=== PATIENT | male | born 1985 | race Two or more races ===

== ENCOUNTER → 2022-12-16 | Outpatient (CLI) | payer OTHER ==
[2022-12-16 11:29] LABS: Basophils # (auto) 0.1 10 ^3/uL (0-0.2); Basophils % (auto) 0.9 % (0.0-2.0); Eosinophils # (auto) 0.3 10 ^3/uL (0-0.8); Eosinophils % (auto) 4.5 % (0.0-7.0); Hematocrit 50.5 % (41.0-53.0); Hemoglobin 16.6 g/dL (13.5-17.5); Lymphocytes % (auto) 27.6 % (10.0-50.0); Mean Corpuscular Hemoglobin 28.7 pg (28.0-32.0); Mean Corpuscular Volume 86.9 fL (80.0-100.0); Monocytes # (auto) 0.6 10 ^3/uL (0-1.3); Monocytes % (auto) 7.6 % (0.0-12.0); Neutrophils # (auto) 4.4 10 ^3/uL (1.6-8.6); Neutrophils % (auto) 59.4 % (37.0-80.0); Nucleated Red Blood Cells % 0.1 %; Red Blood Cells 5.81 10^6/uL (4.5-5.90); Red Cell Distribution Width 13.8 % (11.8-14.3); White Blood Cell 7.3 10^3/uL (4.4-10.8)
[2022-12-16 11:56] LABS: Urine Bacteria NONE SEEN /hpf (None Seen); Urine Blood Negative /uL (Negative); Urine Mucus FEW (None Seen); Urine Specific Gravity 1.026 (1.001-1.035); Urine WBC 2 /hpf (0 - 3)
[2022-12-16 12:07] LABS: Potassium 3.9 mmol/L (3.5-5.1)
[2022-12-16 12:14] LABS: Albumin 4.2 g/dL (3.4-5.0); BUN/Creatinine Ratio 16.8; Bilirubin, Total 0.7 mg/dL (0.2-1.0); Calcium 9.4 mg/dL (8.5-10.1); Total Protein 8.1 g/dL (6.4-8.2)
== END | disposition home or self-care (01) ==
LOC: LAB 11:14
PROVIDERS: ATTEND Student in an Organized Health Care Education/Training Program
DX: R73.9 Hyperglycemia, unspecified (principal); E55.9 Vitamin D deficiency, unspecified; R03.0 Elevated blood-pressure reading, without diagnosis of hypertension
CPT/HCPCS: 36415; 80053; 80061; 81001; 82306; 83036; 84443; 85025

== ENCOUNTER 2023-10-02 17:23 | Inpatient (IN) | payer OTHER ==
[~2023-10-02] VITALS: Ht 172.7 cm; Wt 130.0 kg
[2023-10-02 18:00] VITALS: BP 148/91; PULSE 85; RESP 18; TEMP 97.6; O2SAT 95
[2023-10-02] MEDS ORDERED: CLINDAMYCIN 600MG IV 50 ML IV ONE (18:15)
[2023-10-02] MEDS ORDERED: ACETAMINOPHEN 325 MG TAB PO PRN (18:15)
[2023-10-02] MEDS ORDERED: HYDROcodone-ACET 5/325MG TAB PO PRN (18:15)
[2023-10-02] MEDS ORDERED: VANCOMYCIN PER PHARMACY 0 MG IV SCH (18:15)
[2023-10-02] MEDS ORDERED: TRAM50TA2 PO (18:24)
[2023-10-02] MEDS ORDERED: IBUP-1455 PO (18:24)
[2023-10-02] MEDS ORDERED: DIP005TP TOP (18:24)
[2023-10-02] MEDS ORDERED: MUPI2OIN2 TOP (18:24)
[2023-10-02] MEDS ORDERED: CEPH500C PO (18:24)
[2023-10-02 19:36] LABS: Basophils # (auto) 0.1 10 ^3/uL (0-0.2); Basophils % (auto) 1.1 % (0.0-2.0); Eosinophils # (auto) 0.3 10 ^3/uL (0-0.8); Eosinophils % (auto) 3.7 % (0.0-7.0); Hemoglobin 15.6 g/dL (13.5-17.5); Lymphocytes # (auto) 2.7 10 ^3/uL (0.4-5.4); Lymphocytes % (auto) 30.4 % (10.0-50.0); Mean Corpuscular Hemoglobin 28.6 pg (28.0-32.0); Mean Corpuscular Hgb Conc. 33.3 g/dL (32.0-36.0); Monocytes # (auto) 0.8 10 ^3/uL (0-1.3); Monocytes % (auto) 8.9 % (0.0-12.0); Neutrophils # (auto) 4.9 10 ^3/uL (1.6-8.6); Neutrophils % (auto) 55.9 % (37.0-80.0); Nucleated Red Blood Cells % 0.1 %; Red Blood Cells 5.46 10^6/uL (4.5-5.90); Red Cell Distribution Width 13.2 % (11.8-14.3); White Blood Cell 8.7 10^3/uL (4.4-10.8)
[2023-10-02 19:46] LABS: Urine Bacteria NONE SEEN /hpf (None Seen); Urine Blood Negative /uL (Negative); Urine Clarity Clear (Clear); Urine Color Yellow (Yellow); Urine Mucus FEW (None Seen); Urine Protein, UAD TRACE (Negative); Urine Specific Gravity 1.034 (1.001-1.035); Urine WBC <1 /hpf (0 - 3)
[2023-10-02] MEDS: SODIUM CHLORIDE 0.9% 1,000 ML IV SCH (19:49)
[2023-10-02 19:50] LABS: INR 1.04 (0.9-1.15); Prothrombin Time 10.9 sec (9.3-11.8)
[2023-10-02 19:53] LABS: Alanine Aminotransferase 25 U/L (7-40); Albumin 4.7 g/dL (3.2-4.8); Alkaline Phosphatase 86 U/L (46-116); Anion Gap 8 (5-15); Aspartate Aminotransferase 17 U/L (13-40); BUN/Creatinine Ratio 23.7 (10.0-20.0); Bilirubin, Total 0.5 mg/dL (0.2-1.0); Blood Urea Nitrogen 28 mg/dL (9-23); Calcium 9.2 mg/dL (8.7-10.4); Carbon Dioxide 26 mmol/L (20-30); Chloride 107 mmol/L (98-107); Glucose 98 mg/dL (74-106); Potassium 4.1 mmol/L (3.5-5.1); Sodium 141 mmol/L (136-145); Total Protein 6.9 g/dL (5.7-8.2)
[2023-10-02] MEDS ORDERED: SULF400I3 PO (19:56)
[2023-10-02 20:00] VITALS: PULSE 74; RESP 16; O2SAT 96
[2023-10-02] MEDS ORDERED: VANCOMYCIN 1GM/250ML 250 ML IV ONE (20:00)
[2023-10-02 20:14] LABS: HDL Cholesterol 26 mg/dL (40-59); LDL Cholesterol 70 mg/dL (< 100); Triglycerides 132 mg/dL (< 150)
[2023-10-02 20:57] LABS: Cholesterol 112 mg/dL (< 200)
[2023-10-02] MEDS: ASCORBIC ACID 500 MG TAB PO SCH (21:59)
[2023-10-02 22:00] VITALS: BP 112/82; PULSE 74; RESP 16; TEMP 97.9; O2SAT 96
[2023-10-02] MEDS ORDERED: CLINDAMYCIN 600MG IV 50 ML IV SCH (22:00)
[2023-10-03] MEDS ORDERED: CLINDAMYCIN 600MG IV 50 ML IV SCH ×2 (02:00→04:00)
[2023-10-03 05:00] VITALS: BP 105/59; PULSE 65; RESP 16; TEMP 97.5; O2SAT 98
[2023-10-03] MEDS ORDERED: VANCOMYCIN 1GM/250ML 250 ML IV SCH (06:00)
[2023-10-03 06:37] LABS: Basophils # (auto) 0.1 10 ^3/uL (0-0.2); Basophils % (auto) 1.3 % (0.0-2.0); Eosinophils # (auto) 0.4 10 ^3/uL (0-0.8); Eosinophils % (auto) 4.2 % (0.0-7.0); Hematocrit 48.6 % (41.0-53.0); Hemoglobin 16.5 g/dL (13.5-17.5); Lymphocytes # (auto) 2.3 10 ^3/uL (0.4-5.4); Lymphocytes % (auto) 26.5 % (10.0-50.0); Mean Corpuscular Hemoglobin 29.6 pg (28.0-32.0); Monocytes # (auto) 0.8 10 ^3/uL (0-1.3); Monocytes % (auto) 9.1 % (0.0-12.0); Neutrophils % (auto) 58.9 % (37.0-80.0); Nucleated Red Blood Cells % 0.1 %; Red Blood Cells 5.59 10^6/uL (4.5-5.90); Red Cell Distribution Width 13.8 % (11.8-14.3); White Blood Cell 8.5 10^3/uL (4.4-10.8)
[2023-10-03 07:06] LABS: Alanine Aminotransferase 23 U/L (7-40); Anion Gap 9 (5-15); Calcium 9.6 mg/dL (8.5-10.1); Carbon Dioxide 24 mmol/L (20-30); Chloride 107 mmol/L (98-107); Potassium 4.4 mmol/L (3.5-5.1); Sodium 140 mmol/L (136-145)
[2023-10-03 07:07] LABS: BUN/Creatinine Ratio 22.2 (10.0-20.0); Blood Urea Nitrogen 22 mg/dL (9-23); Glucose 101 mg/dL (74-106)
[2023-10-03 07:09] LABS: Albumin 4.9 g/dL (3.2-4.8); Aspartate Aminotransferase 19 U/L (13-40); Bilirubin, Total 1.2 mg/dL (0.2-1.0); Total Protein 7.6 g/dL (5.7-8.2)
[2023-10-03 07:58] LABS: Alkaline Phosphatase 86 U/L (46-116)
[2023-10-03] MEDS: SODIUM CHLORIDE 0.9% 1,000 ML IV SCH ×2 (08:00→20:55)
[2023-10-03 09:15] VITALS: BP_SYST 120; BP_SYST 130; BP_DIAS 73; BP_DIAS 77; PULSE 101; PULSE 60; RESP 20; RESP 22; TEMP 98.3; TEMP 98.6; O2SAT 100; O2SAT 93
[2023-10-03] MEDS: ASCORBIC ACID 500 MG TAB PO SCH ×2 (10:06→22:36)
[2023-10-03] MEDS: ZINC SULFATE 220mg CAP or TAB PO SCH (10:06)
[2023-10-03] MEDS: MULTIPLE VITAMIN TAB PO SCH (10:06)
[2023-10-03 11:09] LABS: Urine WBC None Seen /hpf (0 - 3)
[2023-10-03 11:34] LABS: Urine Bacteria NONE SEEN /hpf (None Seen); Urine Blood Negative /uL (Negative); Urine Clarity Clear (Clear); Urine Protein, UAD Negative (Negative); Urine Specific Gravity 1.017 (1.001-1.035); Urine Urobilinogen Normal (Negative); Urine pH 5.5 (5.0-8.0)
[2023-10-03 11:47] LABS: Urine Color Yellow (Yellow)
[2023-10-03] MEDS ORDERED: CLINDAMYCIN 900 MG IV SCH (12:15)
[2023-10-03] MEDS: CLINDAMYCIN 900MG IV 50 ML IV SCH ×2 (12:37→22:41)
[2023-10-03 13:00] VITALS: BP_SYST 117; BP_SYST 159; BP_DIAS 76; BP_DIAS 93; PULSE 76; PULSE 91; RESP 16; RESP 18; TEMP 98.6; TEMP 98.7; O2SAT 91; O2SAT 96
[2023-10-03] MEDS: PIPERACILLIN-TAZOB 3.375GM 100 ML IV SCH ×2 (14:00→19:47)
[2023-10-03] MEDS: VANCOMYCIN 1GM/250ML 250 ML IV SCH (16:00)
[2023-10-03 17:00] VITALS: BP 135/84; PULSE 66; RESP 91; TEMP 97.8; O2SAT 91
[2023-10-03 20:00] VITALS: PULSE 83; RESP 20; O2SAT 96
[2023-10-03 22:00] VITALS: BP 112/65; PULSE 83; RESP 20; TEMP 98.1; O2SAT 95
[2023-10-04] MEDS: VANCOMYCIN 1GM/250ML 250 ML IV SCH ×3 (00:04→17:32)
[2023-10-04] MEDS: PIPERACILLIN-TAZOB 3.375GM 100 ML IV SCH ×4 (02:00→20:10)
[2023-10-04 05:00] VITALS: BP 115/58; PULSE 75; RESP 18; TEMP 98.3; O2SAT 95
[2023-10-04] MEDS: CLINDAMYCIN 900MG IV 50 ML IV SCH ×3 (06:06→22:28)
[2023-10-04 09:00] VITALS: BP 118/72; PULSE 79; RESP 18; TEMP 98.4; O2SAT 97
[2023-10-04] MEDS: ASCORBIC ACID 500 MG TAB PO SCH ×2 (09:12→22:27)
[2023-10-04] MEDS: MULTIPLE VITAMIN TAB PO SCH (09:12)
[2023-10-04] MEDS: ZINC SULFATE 220mg CAP or TAB PO SCH (09:13)
[2023-10-04] MEDS: SODIUM CHLORIDE 0.9% 1,000 ML IV SCH ×2 (10:15→23:35)
[2023-10-04 13:09] VITALS: BP 116/60; PULSE 83; RESP 17; TEMP 98; O2SAT 98
[2023-10-04 16:42] VITALS: BP 141/79; PULSE 66; RESP 17; TEMP 98; O2SAT 98
[2023-10-04 20:00] VITALS: BP 120/80; PULSE 61; RESP 19; TEMP 98.3; O2SAT 96
[2023-10-04 22:00] VITALS: BP 120/80; PULSE 61; RESP 19; TEMP 98.3; O2SAT 96
[2023-10-05] MEDS: VANCOMYCIN 1GM/250ML 250 ML IV SCH ×3 (00:11→16:00)
[2023-10-05] MEDS: PIPERACILLIN-TAZOB 3.375GM 100 ML IV SCH ×3 (01:57→14:00)
[2023-10-05 05:00] VITALS: BP 116/64; PULSE 64; RESP 17; TEMP 98.3; O2SAT 94
[2023-10-05] MEDS: CLINDAMYCIN 900MG IV 50 ML IV SCH (06:02)
[2023-10-05 09:00] VITALS: BP 151/100; PULSE 77; RESP 18; TEMP 97.7; O2SAT 95
[2023-10-05] MEDS: ASCORBIC ACID 500 MG TAB PO SCH (10:06)
[2023-10-05] MEDS: ZINC SULFATE 220mg CAP or TAB PO SCH (10:06)
[2023-10-05] MEDS: MULTIPLE VITAMIN TAB PO SCH (10:06)
[2023-10-05] MEDS: SODIUM CHLORIDE 0.9% 1,000 ML IV SCH (12:55)
[2023-10-05] MEDS ORDERED: DOXY-448 PO (13:33)
[2023-10-05] MEDS ORDERED: CHLO4LIQ EX (13:33)
[2023-10-05] MEDS ORDERED: AUG875T PO (13:33)
[2023-10-05 15:56] VITALS: BP 142/88; PULSE 77; TEMP 36.5; O2SAT 96
== END 2023-10-05 17:00 | disposition home or self-care (01) | DRG 603 ==
LOC: UNDOADMIN 17:23 → CENTRAL 17:23
PROVIDERS: ADMIT Nurse Practitioner Family; ATTEND Nurse Practitioner Acute Care
DX: L02.414 Cutaneous abscess of left upper limb (principal); Z68.41 Body mass index [BMI] 40.0-44.9, adult; E66.01 Morbid (severe) obesity due to excess calories; Z83.3 Family history of diabetes mellitus
CPT/HCPCS: 36415; 80053; 80061; 80202; 81001; 83036; 84443; 85025; 85610; 87040; 87205; G0378; J2543; J3490

== ENCOUNTER 2024-02-23 16:41 | Emergency (ER) | payer OTHER ==
[~2024-02-23] VITALS: Ht 172.7 cm; Wt 122.6 kg
[~2024-02-23 16:41] MED LIST: AUG875T PO; CEPH500C PO; CHLO4LIQ EX; DIP005TP TOP; DOXY-448 PO; IBUP-1455 PO; MUPI2OIN2 TOP; SULF400I3 PO; TRAM50TA2 PO
[2024-02-23 17:34] VITALS: BP 150/87; PULSE 88; RESP 18; O2SAT 98
== END 2024-02-23 21:12 | disposition home or self-care (01) ==
LOC: ER 16:41
DX: Z00.00 Encounter for general adult medical examination without abnormal findings (principal); Z79.899 Other long term (current) drug therapy; V89.2XXA Person injured in unspecified motor-vehicle accident, traffic, initial encounter; Y93.I9 Activity, other involving external motion; Y92.411 Interstate highway as the place of occurrence of the external cause; Y99.8 Other external cause status

== ENCOUNTER → 2024-07-04 | Outpatient (CLI) | payer OTHER ==
[~2024-07-04] MED LIST changes: -DOXY-448 PO; +DOXY100C79 PO
[2024-07-04 08:06] LABS: Urine Bacteria None Seen /hpf (None Seen)
[2024-07-04 08:12] LABS: Basophils # (auto) 0.1 10 ^3/uL (0-0.2); Basophils % (auto) 1.5 % (0.0-2.0); Eosinophils # (auto) 0.4 10 ^3/uL (0-0.8); Hematocrit 47.8 % (41.0-53.0); Hemoglobin 16.1 g/dL (13.5-17.5); Lymphocytes # (auto) 2.4 10 ^3/uL (0.4-5.4); Mean Corpuscular Hemoglobin 29.2 pg (28.0-32.0); Mean Corpuscular Hgb Conc. 33.6 g/dL (32.0-36.0); Mean Corpuscular Volume 86.9 fL (80.0-100.0); Monocytes # (auto) 0.7 10 ^3/uL (0-1.3); Monocytes % (auto) 8.4 % (0.0-12.0); Neutrophils # (auto) 4.2 10 ^3/uL (1.6-8.6); Neutrophils % (auto) 54.1 % (37.0-80.0); Nucleated Red Blood Cells % 0.1 %; Platelet Count (auto) 254 10^3/uL (140-450); Red Cell Distribution Width 13.2 % (11.8-14.3); White Blood Cell 7.8 10^3/uL (4.4-10.8)
[2024-07-04 08:16] LABS: Urine Blood Negative /uL (Negative); Urine Clarity Clear (Clear); Urine Color Light-Yellow (Yellow); Urine Protein, UAD Negative (Negative); Urine Specific Gravity 1.026 (1.001-1.035); Urine Urobilinogen Normal (Negative); Urine WBC <1 /hpf (0 - 3)
[2024-07-04 09:30] LABS: Alanine Aminotransferase 31 U/L (7-40); Albumin 4.5 g/dL (3.2-4.8); Alkaline Phosphatase 80 U/L (46-116); Anion Gap 0 (5-15); Aspartate Aminotransferase 12 U/L (13-40); BUN/Creatinine Ratio 16.2 (10.0-20.0); Bilirubin, Total 0.6 mg/dL (0.2-1.0); Blood Urea Nitrogen 17 mg/dL (9-23); Calcium 9.9 mg/dL (8.7-10.4); Carbon Dioxide 30 mmol/L (20-30); Chloride 108 mmol/L (98-107); Cholesterol 166 mg/dL (< 200); Glucose 107 mg/dL (74-106); HDL Cholesterol 38 mg/dL (40-59); LDL Cholesterol 118 mg/dL (< 100); Potassium 4.4 mmol/L (3.5-5.1); Sodium 138 mmol/L (136-145); Total Protein 7.2 g/dL (5.7-8.2); Triglycerides 108 mg/dL (< 150)
== END | disposition home or self-care (01) ==
LOC: LAB 07:56
PROVIDERS: ATTEND Student in an Organized Health Care Education/Training Program
DX: R73.9 Hyperglycemia, unspecified (principal); R03.0 Elevated blood-pressure reading, without diagnosis of hypertension
CPT/HCPCS: 36415; 80053; 80061; 81001; 83036; 84443; 85025

== ENCOUNTER 2025-07-31 07:35 | Outpatient (CLI) | payer OTHER ==
[2025-07-31 08:14] LABS: Hematocrit 47.1 % (41.0-53.0); Hemoglobin 16.8 g/dL (13.5-17.5); Mean Corpuscular Hemoglobin 30.0 pg (28.0-32.0); Mean Corpuscular Volume 84.4 fL (80.0-100.0); Nucleated Red Blood Cells % 0.1 %
[2025-07-31 08:24] LABS: Urine Protein, UAD Negative (Negative)
[2025-07-31 08:27] LABS: Alanine Aminotransferase 40 U/L (7-40); Albumin 4.8 g/dL (3.2-4.8); Alkaline Phosphatase 80 U/L (46-116); Anion Gap 11 (5-15); BUN/Creatinine Ratio 15.1 (10.0-20.0); Blood Urea Nitrogen 16 mg/dL (9-23); Calcium 9.7 mg/dL (8.7-10.4); Carbon Dioxide 26 mmol/L (20-31); Chloride 105 mmol/L (98-107); Potassium 4.0 mmol/L (3.5-5.1); Sodium 142 mmol/L (136-145); Total Protein 7.7 g/dL (5.7-8.2)
[2025-07-31 08:28] LABS: Bilirubin, Total 0.8 mg/dL (0.2-1.0); Cholesterol 171 mg/dL (< 200)
[2025-07-31 08:30] LABS: Glucose 110 mg/dL (74-106); HDL Cholesterol 37 mg/dL (40-59); Triglycerides 162 mg/dL (< 150)
== END 2025-07-31 17:00 | disposition home or self-care (01) ==
LOC: LAB 07:35
PROVIDERS: ATTEND Student in an Organized Health Care Education/Training Program
DX: R03.0 Elevated blood-pressure reading, without diagnosis of hypertension (principal); R73.9 Hyperglycemia, unspecified
CPT/HCPCS: 36415; 80053; 80061; 81001; 83036; 84443; 85025